=== PATIENT | female | born 2000 | race Caucasian/White ===

== ENCOUNTER → 2024-02-01 09:51 | Outpatient (REF) | payer OTHER, SELFPAY | LOC: HWRAD 09:51 | PROVIDERS: ATTENDING PHYSICIAN Nurse Practitioner Family | DX: Z34.90 Encounter for supervision of normal pregnancy, unspecified, unspecified trimester (principal) | CPT/HCPCS: 76801 ==

== ENCOUNTER 2024-02-21 09:48 | Emergency (ER) | payer OTHER, SELFPAY ==
[2024-02-21 09:51] VITALS: BP 103/70
[2024-02-21 10:58] LABS: % Eosinophils 0.5 % (0-6); % Immature Granulocytes 0.2 % (0-0.5); % Lymphocytes 17.5 % (20.5-51.1); % Monocytes 6.3 % (1.7-9.3); % Neutrophils 75.5 % (42.2-75.2); Absolute Lymphocytes 0.8 10^3/uL (1.2-3.4); Absolute Monocytes 0.3 10^3/uL (0.1-0.6); Absolute Neutrophils 3.2 10^3/uL (1.4-6.5); Hematocrit 33.3 % (37.0-47.0); Hemoglobin 11.3 g/dL (12.0-16.0); Mean Corp Hgb Conc. 33.9 g/dL (33.0-37.0); Mean Corpuscular Volume 88.3 fL (81.0-99.0); Mean Platelet Volume 9.8 fL (7.4-10.4); Nucleated Red Blood Cells % 0 %; Platelet Count 171 10^3/uL (130-400); Red Blood Cell Count 3.77 10^6/uL (4.20-5.40); Red Cell Dist. Width 12.3 % (11.5-14.5); White Blood Cell Count 4.3 10^3/uL (4.8-10.8)
[2024-02-21 11:04] LABS: ALT (SGPT) 16 U/L (0-35); AST (SGOT) 21 U/L (14-36); Albumin 4.2 g/dl (3.5-5.0); Alkaline Phosphatase 39 U/L (38-126); Blood Urea Nitrogen 10 mg/dl (7-17); Calcium 9.4 mg/dl (8.4-10.2); Carbon Dioxide 21 mmol/L (22-30); Chloride 104 mmol/L (98-107); Glucose 102 mg/dl (70-99); Potassium 4.3 mmol/L (3.5-5.1); Sodium 137 mmol/L (135-145); Total Bilirubin 0.8 mg/dl (0.2-1.3); Total Protein 6.9 g/dl (6.3-8.2); eGFR > 60.00
[2024-02-21] MEDS: D5/0.9% SODIUM CHLORIDE 1000 IV (11:29)
[2024-02-21] MEDS: ZOFRAN 4 MG IV (11:29)
[2024-02-21 11:39] LABS: Urine Albumin Trace (Neg - Trace); Urine Bilirubin 1+ (Negative); Urine Character Very Cloudy (Clear); Urine Color Yellow; Urine Glucose Negative (Negative); Urine Ketone 3+ (Negative); Urine Leukocyte 1+ (Negative); Urine Nitrite Negative (Negative); Urine Occult Blood Negative (Negative); Urine Specific Gravity 1.025 (<1.030); Urine Urobilinogen 1+ (Neg - 1+)
--- NOTE | 2024-02-21 12:14 | ED.GENMED ---
History of Present Illness
General
Chief Complaint: Problems
Source: patient
Exam Limitations: none
Time Seen by Provider: 02/21/24 10:55
Nursing documentation reviewed up to this point in time: agreed with
History of Present Illness
History of Present Illness:
23-year-old female currently 13 weeks confirmed with ultrasound with her group insurance special agent presenting to the emergency department today with concerns of persisting nausea and vomiting over the past few days. Has been taking doxylamine at
night but has not noticed any improvement over the last few days. Denies any abdominal pain cramping or vaginal bleeding. Denies any medical conditions or other daily medications.
Past History
Past History
ED Past Medical History: None
ED Past Surgical History: None
Review of Systems
Review of Systems
Allergies reviewed?: Yes
All Other Systems: ROS reviewed and negative except as documented in HPI and ROS
Phy Exam
Physical Exam
Physical Exam:
GENERAL: Alert , in no apparent distress
EYE: pupils equal and reactive
NECK: Supple, no significant adenopathy.
ENT: o/p clr, mmm.
CARDIAC: Regular rate and rhythm .
LUNGS: Clear breath sounds bilaterally, no acute respiratory distress, no wheezes/rales/rhonchi
ABDOMEN: Soft, without focal tenderness, no r/g, no cvat
NEUROLOGICAL: Alert and oriented, no focal neuro deficits
SKIN: Warm and dry, skin intact.
MUSCULOSKELETAL: No edema, well perfused.
PSYCH: Normal and appropriate interaction.
Course
Orders/Labs/Results
Orders:
Orders
02/21/24 10:30
Complete Blood Count/With Diff Urgent
Comprehensive Metabolic Panel Urgent
HCG, Beta Quantitative [Beta HCG Quantitative] Urgent
Is this a screen?: No
02/21/24 10:57
Ondansetron Injectable [Zofran] 4 mg IV NOW STA
02/21/24 10:58
Dextrose 5%/0.9%Sodchl 1000 ml [D5/0.9% Sodium Chloride] 1,000 ml IV 1,000 mls/hr
02/21/24 11:16
Ondansetron Injectable [Zofran] 4 mg .ROUTE .[facility]
02/21/24 11:30
Urinalysis Reflex To Culture Urgent
Date Specimen was Collected: 02/21/24
Time Specimen was Collected: :
Urine Microscopic Reflex Cult Urgent
Urine Culture Urgent
MARIA R Source: U
Specimen Description:
Date Specimen was Collected: 02/21/24
Time Specimen was Collected: :
Abnormal Lab Results
02/21/24 02/21/24
:30 11:30
WBC 4.3 L 10^3/uL
(4.8-10.8)
RBC 3.77 L 10^6/uL
(4.20-5.40)
Hgb 11.3 L g/dL
(12.0-16.0)
Hct 33.3 L %
(37.0-47.0)
Absolute Lymphs (auto) 0.8 L 10^3/uL
(1.2-3.4)
Neutrophils % 75.5 H %
(42.2-75.2)
Lymphocytes % 17.5 L %
(20.5-51.1)
Carbon Dioxide 21 L mmol/L
(22-30)
Glucose 102 H mg/dl
(70-99)
Urine Ketones 3+ A
(Negative)
Urine Bilirubin 1+ A
(Negative)
Leukocyte Esterase Rfl 1+ A
(Negative)
Urine WBC (Reflex) 11-15 A /HPF
(0-5)
Urine Bacteria (Reflex) Many A
(Negative)
02/21/24 10:30
02/21/24 10:30
Vital Signs
Initial and Last Documented VS:
Initial Vital Signs
Temp Pulse Resp BP Pulse Ox
98.9 F 99 18 103/70 98
02/21/24 09:51 02/21/24 09:51 02/21/24 09:51 02/21/24 09:51 02/21/24 09:51
Last Documented Vital Signs
Temp Pulse Resp BP Pulse Ox
98.9 F 99 18 103/70 98
02/21/24 09:51 02/21/24 09:51 02/21/24 09:51 02/21/24 09:51 02/21/24 09:51
Information
Weeks gestation: Weeks:
Location: Location:
MDM/Problems Addressed
MDM/Problems Addressed:
23-year-old female presenting to the emergency department today with concerns of nausea and vomiting persisting over the past few days in the setting of 13 weeks . Patient did have confirmatory ultrasound recently through her group insurance special agent.
This is her first . Vital signs normal on arrival labs obtained that do not show any emergent changes. Patient with normal heart tones on bedside examination. Otherwise feeling much better after Zofran. Stable for outpatient
management return precautions given.
*Critical Care Note
Total Time (30-74mins, 75-104mins- exclusive of procedures): Not Applicable
ED Attending Note
-
Portions of this chart may have been created with voice recognition software.� Occasional wrong word or��sound alike� substitutions may have occurred due to the inherent limitations of voice recognition software.
Discharge Plan
Departure
Patient Disposition: Home (Routine Discharge)
Date of Disposition: 02/21/24
Time of Disposition: 13:48
Patient with high blood pressure during this ER visit?: No
Condition: Good
Covid-19: Not Applicable
Discharge Problem:
Vomiting of
Instructions: Morning Sickness (DC)
Prescriptions:
New
ondansetron 4 mg tablet,disintegrating
4 mg PO Q6H PRN (Reason: nausea and vomiting) Qty: 7 0RF
No Action
methylprednisolone [Medrol (R[facility])] 4 mg tablets,dose pack
4 mg PO DAILY Qty: 21 0RF
ondansetron 4 mg tablet,disintegrating
4 mg PO Q8H PRN (Reason: nausea and vomiting) 5 Days Qty: 14 0RF
Referrals:
Daron Thrasher MD [Family Provider] -
Activity Restrictions/Additional Instructions:
You came to the emergency department today with concerns of nausea and vomiting in . You can take Zofran 1 tab every 6 hours to help with nausea in the future. Return to the emergency department for any worsening, new or concerning
symptoms.
Interventions
Interventions:
*Risk Screen - Suicide Last Done: 02/21/24 09:54
*General Assessment Last Done: 02/21/24 12:44
*Neglect/Abuse Screening Last Done: 02/21/24 09:54
ED- Fall Risk Assessment Last Done: 02/21/24 12:44
*ED COVID-19 Vaccine History Last Done: 02/21/24 12:44
ED-Female Genitourinary Assessment Last Done: 02/21/24 12:44
Discharge Date and Time
Print Language: GEORGIAN
[2024-02-21 12:16] LABS: Urine Mucus Many; Urine Squamous Cell >30 /LPF (Few)
[2024-02-21 12:17] LABS: Urine Amorphous Seen
[2024-02-21 12:18] LABS: Urine Bacteria Many (Negative); Urine Red Blood Cell 0-2 /HPF (0-2)
[2024-02-21 14:21] VITALS: BP 105/66
== END 2024-02-21 14:23 | disposition home or self-care (01) ==
LOC: EMR 09:48
PROVIDERS: Physician Assistant; EMERGENCY PHYSICIAN Emergency Medicine; FAMILY PHYSICIAN Obstetrics & Gynecology
DX: O21.9 Vomiting of pregnancy, unspecified (principal); Z3A.13 13 weeks gestation of pregnancy
CPT/HCPCS: 96374; 96361; 99284; 80053; 81003; 81015; 84702; 85025; 87086

== ENCOUNTER → 2024-04-16 06:57 | Outpatient (REF) | payer OTHER, SELFPAY | LOC: PNTC 06:57 | PROVIDERS: ATTENDING PHYSICIAN Student in an Organized Health Care Education/Training Program | DX: Z34.82 Encounter for supervision of other normal pregnancy, second trimester (principal); O28.3 Abnormal ultrasonic finding on antenatal screening of mother | CPT/HCPCS: 76811 ==

== ENCOUNTER 2024-04-20 12:18 | Emergency (ER) | payer OTHER, SELFPAY ==
[2024-04-20 12:21] VITALS: BP 101/68
[2024-04-20 12:38] LABS: % Basophils 0.1 % (0-2); % Eosinophils 0.3 % (0-6); % Immature Granulocytes 0.1 % (0-0.5); % Lymphocytes 7.1 % (20.5-51.1); % Monocytes 5.6 % (1.7-9.3); % Neutrophils 86.8 % (42.2-75.2); Absolute Lymphocytes 0.5 10^3/uL (1.2-3.4); Absolute Monocytes 0.4 10^3/uL (0.1-0.6); Absolute Neutrophils 6.3 10^3/uL (1.4-6.5); Hematocrit 33.6 % (37.0-47.0); Hemoglobin 11.3 g/dL (12.0-16.0); Mean Corp Hgb Conc. 33.6 g/dL (33.0-37.0); Mean Corpuscular Hgb 31.9 pg (27.0-31.0); Mean Corpuscular Volume 94.9 fL (81.0-99.0); Mean Platelet Volume 9.6 fL (7.4-10.4); Nucleated Red Blood Cells % 0 %; Platelet Count 179 10^3/uL (130-400); Red Blood Cell Count 3.54 10^6/uL (4.20-5.40); Red Cell Dist. Width 13.2 % (11.5-14.5); White Blood Cell Count 7.3 10^3/uL (4.8-10.8)
[2024-04-20 12:50] LABS: ALT (SGPT) 20 U/L (0-35); AST (SGOT) 24 U/L (14-36); Albumin 3.5 g/dl (3.5-5.0); Alkaline Phosphatase 60 U/L (38-126); Blood Urea Nitrogen 8 mg/dl (7-17); Calcium 8.7 mg/dl (8.4-10.2); Carbon Dioxide 24 mmol/L (22-30); Chloride 103 mmol/L (98-107); Glucose 86 mg/dl (70-99); Lipase 61 U/L (23-300); Sodium 134 mmol/L (135-145); Total Bilirubin 0.4 mg/dl (0.2-1.3); Total Protein 6.3 g/dl (6.3-8.2); eGFR > 60.00
--- NOTE | 2024-04-20 13:49 | ED.GENMED ---
History of Present Illness
General
Chief Complaint: Abdominal Symptoms
Source: patient
Exam Limitations: none
Time Seen by Provider: 04/20/24 13:41
Nursing documentation reviewed up to this point in time: agreed with
History of Present Illness
History of Present Illness:
23 yo female , 21 weeks here at the suggestion of her OB Dr. Alejandro for nausea, vomiting, non bloody diarrhea over past 4 days. Is slowing down past 24 hours. No recent travel, no known sick contacts, no recent antibiotics.
Denies fever/chills. Gets sharp abdominal pains at times. Last diarrhea 5 a.m. Last emesis 5 a.m. Feels nauseous now.
Past History
Past History
ED Past Medical History: None
ED Past Surgical History: None
Social History
Tobacco: Non-smoker
Alcohol: None
Personal:
Living: with family
Review of Systems
Review of Systems
Allergies reviewed?: Yes
All Other Systems: ROS reviewed and negative except as documented in HPI and ROS
Constitutional: Denies fever or chills
Respiratory: Denies trouble breathing
Cardiac: Denies chest pain
ABD/GI: Reports abdominal pain (intermittent), nausea, vomiting and diarrhea; Denies bloody stools or black stools
: Denies dysuria, frequency or difficulty voiding
Musculoskeletal: Reports no symptoms
Skin: Reports no symptoms
Neurological: Reports no symptoms
Phy Exam
Physical Exam
Physical Exam:
GENERAL: No acute distress. A&Ox3.
CONSTITUTIONAL: Afebrile.
EYES: clear, conjunctivae normal
ENMT: moist mucus membranes, Pharynx nl
RESPIRATORY: Regular respirations, nonlabored, lungs clear.
CARDIOVASCULAR: Regular rate and rhythm, no murmurs, no rubs.
GI: Soft, nontender, normal BS, mildly rotund consistent with 21-week
MUSCULOSKELETAL: Moves with ease. Well perfused.
SKIN: Warm, dry, pink
PSYCH: Normal mood and affect. Well kept, interactive and appropriate
NEUROLOGIC: Awake, alert and oriented. No focal neurological deficits
Course
Orders/Labs/Results
Orders:
Orders
04/20/24 12:29
CMP [Comprehensive Metabolic Panel] Urgent
Complete Blood Count/With Diff Urgent
Lipase Urgent
04/20/24 13:48
Ondansetron Injectable [Zofran] 4 mg IV NOW STA
04/20/24 13:49
0.9% Sodium Chloride 1000 ml [Nss] 1,000 ml IV BOLUS
04/20/24 14:00
Heart Tones ONCE
Abnormal Lab Results
04/20/24
12:29
RBC 3.54 L 10^6/uL
(4.20-5.40)
Hgb 11.3 L g/dL
(12.0-16.0)
Hct 33.6 L %
(37.0-47.0)
MCH 31.9 H pg
(27.0-31.0)
Absolute Lymphs (auto) 0.5 L 10^3/uL
(1.2-3.4)
Neutrophils % 86.8 H %
(42.2-75.2)
Lymphocytes % 7.1 L %
(20.5-51.1)
Sodium 134 L mmol/L
(135-145)
04/20/24 12:29
04/20/24 12:29
Vital Signs
Initial and Last Documented VS:
Initial Vital Signs
Temp Pulse Resp BP Pulse Ox
98.1 F 95 16 101/68 100
04/20/24 12:21 04/20/24 12:21 04/20/24 12:21 04/20/24 12:21 04/20/24 12:21
Last Documented Vital Signs
Temp Pulse Resp BP Pulse Ox
98.1 F 95 16 102/62 100
04/20/24 12:21 04/20/24 12:21 04/20/24 12:21 04/20/24 15:00 04/20/24 15:15
MDM/Problems Addressed
Differential Diagnosis Includes:
Dehydration, viral gastroenteritis
MDM/Problems Addressed:
23 yo female , 21 weeks here at the suggestion of her OB Dr. Alejandro for nausea, vomiting, non bloody diarrhea over past 4 days. Is slowing down past 24 hours. No recent travel, no known sick contacts, no recent antibiotics.
Denies fever/chills. Gets sharp abdominal pains at times. Last diarrhea 5 a.m. Last emesis 5 a.m. Feels nauseous now.
Has felt consistent movement
CBC, CMP with no clinically significant abnormality
3:10 p.m.
Pt feeling better. Tolerating bekah miracle and crackers
Rx for Zofran sent to her pharmacy
FHT:[id number]
There has been no vomiting or diarrhea since 5 a.m. and pt states it is improving from 2 days ago.
Stable for discharge
*Critical Care Note
Total Time (30-74mins, 75-104mins- exclusive of procedures): Not Applicable
ED Attending Note
-
Portions of this chart may have been created with voice recognition software.� Occasional wrong word or��sound alike� substitutions may have occurred due to the inherent limitations of voice recognition software.
Discharge Plan
Departure
Patient Disposition: Home (Routine Discharge)
Date of Disposition: 04/20/24
Time of Disposition: 15:10
Patient with high blood pressure during this ER visit?: No
Condition: Good
Discharge Problem:
Gastroenteritis
Instructions: Viral gastroenteritis in adults
Prescriptions:
New
ondansetron 4 mg tablet,disintegrating
4 mg PO Q8H PRN (Reason: nausea and vomiting) 3 Days Qty: 10 0RF
No Action
methylprednisolone [Medrol (R[facility])] 4 mg tablets,dose pack
4 mg PO DAILY Qty: 21 0RF
ondansetron 4 mg tablet,disintegrating
4 mg PO Q8H PRN (Reason: nausea and vomiting) 5 Days Qty: 14 0RF
ondansetron 4 mg tablet,disintegrating
4 mg PO Q6H PRN (Reason: nausea and vomiting) Qty: 7 0RF
Referrals:
Your, OB [Other] - As needed
Shirin Gagnon, DO [Family Provider] -
Activity Restrictions/Additional Instructions:
As we discussed, your baby's heart rate is normal
I sent a prescription to your pharmacy for Zofran to use as needed for nausea.
Since your diarrhea and vomiting are improving, nothing more to be done at this point.
Interventions
Interventions:
*Risk Screen - Suicide Last Done: 04/20/24 15:59
*General Assessment Last Done: 04/20/24 15:59
*Neglect/Abuse Screening Last Done: 04/20/24 15:59
ED- Fall Risk Assessment Last Done: 04/20/24 15:59
*ED COVID-19 Vaccine History Last Done: 04/20/24 15:59
*Nursing Disposition Last Done: 04/20/24 15:59
PD-Repuxj-Myhxulhsum Assessment Last Done: 04/20/24 14:00
Discharge Date and Time
Discharge Date/Time: 04/20/24 16:01
Print Language: BURMESE
[2024-04-20] MEDS: NSS 1000 IV (14:16)
[2024-04-20] MEDS: ZOFRAN 4 MG IV (14:17)
[2024-04-20 15:00] VITALS: BP 102/62
--- NOTE | 2024-04-20 15:12 | EDRN ---
heart tones strong and HR 140
== END 2024-04-20 16:01 | disposition home or self-care (01) ==
LOC: EMR 12:18
PROVIDERS: Emergency Medicine; EMERGENCY PHYSICIAN Emergency Medicine; FAMILY PHYSICIAN Family Medicine
DX: O99.612 Diseases of the digestive system complicating pregnancy, second trimester (principal); K52.9 Noninfective gastroenteritis and colitis, unspecified; Z3A.21 21 weeks gestation of pregnancy
CPT/HCPCS: 96374; 96361; 99284; 80053; 83690; 85025

== ENCOUNTER → 2024-05-14 16:35 | Outpatient (REF) | payer OTHER, SELFPAY | LOC: PNTC 16:35 | PROVIDERS: ATTENDING PHYSICIAN Student in an Organized Health Care Education/Training Program | DX: O35.8XX0 Maternal care for other (suspected) fetal abnormality and damage, not applicable or unspecified (principal) | CPT/HCPCS: 76816 ==

== ENCOUNTER → 2024-06-11 16:33 | Outpatient (REF) | payer OTHER, SELFPAY | LOC: PNTC 16:33 | PROVIDERS: ATTENDING PHYSICIAN Student in an Organized Health Care Education/Training Program | DX: O28.3 Abnormal ultrasonic finding on antenatal screening of mother (principal) | CPT/HCPCS: 76816 ==

== ENCOUNTER 2024-06-21 08:06 | Emergency (ER) | payer OTHER, SELFPAY ==
[2024-06-21] VITALS (7 sets, daily range): BP systolic 97–125; BP diastolic 57–85
--- NOTE | 2024-06-21 09:23 | ED.GENMED ---
History of Present Illness
General
Chief Complaint: Fainting Sensation
Source: patient
Exam Limitations: none
Time Seen by Provider: 06/21/24 09:06
History of Present Illness
History of Present Illness:
23-year-old female currently 30 weeks presents complaining of intermittent lightheadedness this week. She was standing in the shower and started to see stars and felt lightheaded she had to sit her self down. She also notes intermittent
stabbing chest to the right side. This has been intermittent for several days not pleuritic and random in nature. She feels that his lowest the baby moving around. Currently she denies any chest pain. She denies any leg swelling or calf pain.
No hemoptysis. She denies abdominal pain or bleeding. She is followed with [facility]. No recent travel or surgery
Past History
Past History
ED Past Medical History: None
ED Past Surgical History: None
Social History
Tobacco: Non-smoker
Alcohol: None
Personal:
Living: with family
Phy Exam
Physical Exam
Physical Exam:
General: Well-appearing female no acute respiratory distress
HEENT: Normocephalic atraumatic
Heart: Regular rate and rhythm
Lungs: Clear no wheeze
Extremities: No cyanosis or edema
Course
Orders/Labs/Results
Orders:
Orders
06/21/24 08:10
Electrocardiogram (*1) Urgent
Reason for Study: Shortness of Breath
06/21/24 08:11
EKG- Treatment ONCE
06/21/24 09:40
Complete Blood Count/With Diff Urgent
Comprehensive Metabolic Panel Urgent
Troponin I Urgent
06/21/24 11:09
0.9% Sodium Chloride 1000 ml [Nss] 1,000 ml IV BOLUS
Abnormal Lab Results
06/21/24
09:40
RBC 3.37 L 10^6/uL
(4.20-5.40)
Hgb 10.2 L g/dL
(12.0-16.0)
Hct 31.4 L %
(37.0-47.0)
MCHC 32.5 L g/dL
(33.0-37.0)
Absolute Monos (auto) 0.7 H 10^3/uL
(0.1-0.6)
Lymphocytes % 18.0 L %
(20.5-51.1)
Sodium 133 L mmol/L
(135-145)
Creatinine 0.5 L mg/dL
(0.6-1.0)
Total Protein 6.2 L g/dl
(6.3-8.2)
06/21/24 09:40
06/21/24 09:40
Vital Signs
Initial and Last Documented VS:
Initial Vital Signs
Temp Pulse Resp BP Pulse Ox
97.7 F 109 18 125/85 100
06/21/24 08:08 06/21/24 08:08 06/21/24 08:08 06/21/24 08:08 06/21/24 08:08
Last Documented Vital Signs
Temp Pulse Resp BP Pulse Ox
97.7 F 74 16 97/57 98
06/21/24 08:08 06/21/24 12:00 06/21/24 12:20 06/21/24 12:00 06/21/24 12:20
MDM/Problems Addressed
Differential Diagnosis Includes:
Patient with near syncopal episodes today and throughout the week. No chest pain currently normal heart rate currently. Suspect orthostatic hypotension versus dehydration we will continue to monitor for arrhythmias. Chest discomfort atypical not
consistent with PE and without hypoxia or tachycardia have low suspicion. Fluids ordered basic labs pending
*Critical Care Note
Total Time (30-74mins, 75-104mins- exclusive of procedures): Not Applicable
Update Note
Update Note:
Labs reviewed without significant finding. Patient feeling better after IV fluids. I suspect orthostasis as source of near syncope. There is no arrhythmias noted on monitor. Abdomen exam upon reassessment is benign.
ED Attending Note
-
Portions of this chart may have been created with voice recognition software.� Occasional wrong word or��sound alike� substitutions may have occurred due to the inherent limitations of voice recognition software.
Discharge Plan
Departure
Patient Disposition: Home (Routine Discharge)
Date of Disposition: 06/21/24
Time of Disposition: 12:58
Patient with high blood pressure during this ER visit?: No
Discharge Problem:
Near syncope
Instructions: Near Fainting (DC)
Prescriptions:
No Action
methylprednisolone [Medrol (Ridge)] 4 mg tablets,dose pack
4 mg PO DAILY Qty: 21 0RF
ondansetron 4 mg tablet,disintegrating
4 mg PO Q8H PRN (Reason: nausea and vomiting) 5 Days Qty: 14 0RF
ondansetron 4 mg tablet,disintegrating
4 mg PO Q6H PRN (Reason: nausea and vomiting) Qty: 7 0RF
ondansetron 4 mg tablet,disintegrating
4 mg PO Q8H PRN (Reason: nausea and vomiting) 3 Days Qty: 10 0RF
Referrals:
Adalid Anderson DO [Family Provider] -
Activity Restrictions/Additional Instructions:
Stay hydrated. Return here for worsening symptoms otherwise follow-up with your [facility]
Interventions
Interventions:
*Risk Screen - Suicide Last Done: 06/21/24 08:08
*General Assessment Last Done: 06/21/24 08:08
*Neglect/Abuse Screening Last Done: 06/21/24 08:08
*ED COVID-19 Vaccine History Last Done: 06/21/24 08:38
ED- Neurological Assessment Last Done: 06/21/24 08:38
ED- Cardiac Assessment Last Done: 06/21/24 08:38
Discharge Date and Time
Print Language: FAROESE
[2024-06-21 09:53] LABS: % Basophils 0.1 % (0-2); % Eosinophils 0.4 % (0-6); % Immature Granulocytes 0.3 % (0-0.5); % Monocytes 8.2 % (1.7-9.3); Absolute Lymphocytes 1.6 10^3/uL (1.2-3.4); Absolute Monocytes 0.7 10^3/uL (0.1-0.6); Absolute Neutrophils 6.5 10^3/uL (1.4-6.5); Hematocrit 31.4 % (37.0-47.0); Hemoglobin 10.2 g/dL (12.0-16.0); Mean Corp Hgb Conc. 32.5 g/dL (33.0-37.0); Mean Corpuscular Hgb 30.3 pg (27.0-31.0); Mean Corpuscular Volume 93.2 fL (81.0-99.0); Mean Platelet Volume 10.2 fL (7.4-10.4); Nucleated Red Blood Cells % 0 %; Platelet Count 180 10^3/uL (130-400); Red Blood Cell Count 3.37 10^6/uL (4.20-5.40); White Blood Cell Count 8.9 10^3/uL (4.8-10.8)
[2024-06-21 10:05] LABS: ALT (SGPT) 15 U/L (0-35); AST (SGOT) 18 U/L (14-36); Albumin 3.6 g/dl (3.5-5.0); Alkaline Phosphatase 98 U/L (38-126); Blood Urea Nitrogen 10 mg/dl (7-17); Calcium 8.9 mg/dl (8.4-10.2); Carbon Dioxide 23 mmol/L (22-30); Chloride 103 mmol/L (98-107); Glucose 86 mg/dl (70-99); Potassium 4.3 mmol/L (3.5-5.1); Sodium 133 mmol/L (135-145); Total Bilirubin 0.6 mg/dl (0.2-1.3); Total Protein 6.2 g/dl (6.3-8.2); eGFR > 60.00
[2024-06-21 10:15] LABS: Troponin I < 0.012 ng/ml
[2024-06-21] MEDS: NSS 1000 IV (11:32)
[2024-06-21 13:14] LABS: Urine Albumin Negative (Neg - Trace); Urine Bilirubin Negative (Negative); Urine Character Clear (Clear); Urine Color Yellow; Urine Glucose Negative (Negative); Urine Ketone Negative (Negative); Urine Leukocyte 2+ (Negative); Urine Nitrite Negative (Negative); Urine Occult Blood Negative (Negative); Urine Urobilinogen Negative (Neg - 1+)
[2024-06-21 13:28] LABS: Urine Red Blood Cell 0-2 /HPF (0-2); Urine Squamous Cell >30 /LPF (Few)
[2024-06-21 13:29] LABS: Urine Bacteria Many (Negative)
== END 2024-06-21 13:19 | disposition home or self-care (01) ==
LOC: EMR 08:06
PROVIDERS: Physician Assistant; EMERGENCY PHYSICIAN Emergency Medicine; FAMILY PHYSICIAN Internal Medicine
DX: O99.891 Other specified diseases and conditions complicating pregnancy (principal); R55 Syncope and collapse; Z3A.30 30 weeks gestation of pregnancy
CPT/HCPCS: 99283; 96360; 80053; 81003; 81015; 84484; 85025; 87086; 93005

== ENCOUNTER 2024-06-28 17:07 | Emergency (ER) | payer OTHER, SELFPAY ==
[2024-06-28 17:10] VITALS: BP 107/69
[2024-06-28 17:31] LABS: % Basophils 0.1 % (0-2); % Eosinophils 0.5 % (0-6); % Immature Granulocytes 0.2 % (0-0.5); % Lymphocytes 19.3 % (20.5-51.1); % Monocytes 8.5 % (1.7-9.3); % Neutrophils 71.4 % (42.2-75.2); Absolute Lymphocytes 1.7 10^3/uL (1.2-3.4); Absolute Monocytes 0.7 10^3/uL (0.1-0.6); Absolute Neutrophils 6.2 10^3/uL (1.4-6.5); Hematocrit 29.4 % (37.0-47.0); Hemoglobin 9.8 g/dL (12.0-16.0); Mean Corp Hgb Conc. 33.3 g/dL (33.0-37.0); Mean Corpuscular Hgb 29.8 pg (27.0-31.0); Mean Corpuscular Volume 89.4 fL (81.0-99.0); Mean Platelet Volume 9.8 fL (7.4-10.4); Nucleated Red Blood Cells % 0 %; Platelet Count 196 10^3/uL (130-400); Red Blood Cell Count 3.29 10^6/uL (4.20-5.40); Red Cell Dist. Width 12.2 % (11.5-14.5); White Blood Cell Count 8.7 10^3/uL (4.8-10.8)
[2024-06-28 17:53] LABS: ALT (SGPT) 15 U/L (0-35); AST (SGOT) 18 U/L (14-36); Albumin 3.6 g/dl (3.5-5.0); Alkaline Phosphatase 104 U/L (38-126); Blood Urea Nitrogen 11 mg/dl (7-17); Calcium 8.7 mg/dl (8.4-10.2); Carbon Dioxide 24 mmol/L (22-30); Chloride 101 mmol/L (98-107); Glucose 85 mg/dl (70-99); Sodium 131 mmol/L (135-145); Total Bilirubin 0.6 mg/dl (0.2-1.3); Total Protein 6.3 g/dl (6.3-8.2); eGFR > 60.00
[2024-06-28 17:54] LABS: NT-proBNP < 20.0 pg/ml; Troponin I < 0.012 ng/ml
--- NOTE | 2024-06-28 19:38 | ED.GENMED ---
History of Present Illness
<Мария Yeh PA-C - Last Filed: 06/29/24 00:19>
General
Chief Complaint: Problems
Source: patient
Exam Limitations: none
Time Seen by Provider: 06/28/24 18:33
Nursing documentation reviewed up to this point in time: agreed with
History of Present Illness
History of Present Illness:
Patient is a G1, P0 at approximately 32 weeks gestation presenting to the emergency department due to multiple near syncopal events over the past week. Patient reports intermittently throughout the day she will have episodes of 'seeing stars
'becoming clammy, lightheaded. The episodes have occurred both with sitting and standing although have improved on their own without true syncopal events. She does report mild shortness of breath with exertion although was unsure if this is
related. Patient declines any pleuritic chest pain. Patient denies any pain or swelling in lower extremities. Patient denies any recent travel. The symptoms are not associated with any severe headache, vomiting, exertional activities.
Patient was seen in the ED for similar complaint about a week ago for symptoms were suspected to be secondary to possible dehydration.
Given persistence of symptoms over the past week�patient did contact her TREASURY MANAGER who recommended she be seen in department again to rule out a blood clot. Patient follows with [facility].
Past History
<Мария Yeh PA-C - Last Filed: 06/29/24 00:19>
Past History
ED Past Medical History: None
ED Past Surgical History: None
Social History
Tobacco: Non-smoker
Alcohol: None
Personal:
Living: with family
Review of Systems
<Мария Yeh PA-C - Last Filed: 06/29/24 00:19>
Review of Systems
Allergies reviewed?: Yes
All Other Systems: ROS reviewed and negative except as documented in HPI and ROS
Phy Exam
<Мария Yeh PA-C - Last Filed: 06/29/24 00:19>
Physical Exam
Physical Exam:
Vitals: Patient's vital signs are stable. Afebrile
General: Patient is well appearing, no acute distress.
Skin: Warm and dry, no rashes or lesions
Head: Normocephalic, atraumatic
Eyes: Sclera nonicteric. Pupils equal round to light bilaterally. EOMs intact. No nystagmus.
Throat: Protecting airway
Neck: Normal ROM, no cervical spine tenderness, no meningismus
Cardiac: Regular rate and rhythm, no murmurs.
Pulm: Normal respiratory effort, no wheezes, rales, rhonchi heard on exam. O2 saturation 98 on room air
Abdomen: Gravid abdomen. No abdominal tenderness.
Extremities: No evidence of cyanosis or edema. Negative Homans' sign bilaterally
Neuro: AAOx3. Grossly intact.
Psychiatric: Normal affect.
Course
<Мария Yeh PA-C - Last Filed: 06/29/24 00:19>
Orders/Labs/Results
Orders:
Orders
06/28/24 17:17
Electrocardiogram (*1) Urgent
Reason for Study: Shortness of Breath
EKG- Treatment ONCE
06/28/24 17:24
BNP [NT-proBNP] Urgent
CMP [Comprehensive Metabolic Panel] Urgent
Complete Blood Count/With Diff Urgent
Troponin I Urgent
06/28/24 19:09
Orthostatic VS- Treatment ONCE
0.9% Sodium Chloride 1000 ml [Nss] 1,000 ml IV BOLUS
US Legs, Bilateral [US Periph Venous LOWER Ext Russell] Urgent
Comment:
Reason For Exam: SOB in
06/28/24 19:15
Heart Tones ONCE
06/28/24 20:02
D-Dimer Urgent
Abnormal Lab Results
06/28/24 06/28/24
17:24 20:02
RBC 3.29 L 10^6/uL
(4.20-5.40)
Hgb 9.8 L g/dL
(12.0-16.0)
Hct 29.4 L %
(37.0-47.0)
Absolute Monos (auto) 0.7 H 10^3/uL
(0.1-0.6)
Lymphocytes % 19.3 L %
(20.5-51.1)
D-Dimer 1.27 H ug/mlFEU
(0.00-0.50)
Sodium 131 L mmol/L
(135-145)
Creatinine 0.5 L mg/dL
(0.6-1.0)
06/28/24 17:24
06/28/24 17:24
Vital Signs
Initial and Last Documented VS:
Initial Vital Signs
Temp Pulse Resp BP Pulse Ox
36.6 C 92 18 107/69 98
06/28/24 17:10 06/28/24 17:10 06/28/24 17:10 06/28/24 17:10 06/28/24 17:10
Last Documented Vital Signs
Temp Pulse Resp BP Pulse Ox
36.6 C 92 18 110/67 99
06/28/24 17:10 06/28/24 17:10 06/28/24 17:10 06/28/24 22:00 06/28/24 21:07
Information
Weeks gestation: Weeks: (32)
Location: Location: (Intrauterine)
<Adalid Chacko MD - Last Filed: 06/29/24 02:55>
Orders/Labs/Results
Orders:
Orders
06/28/24 17:17
Electrocardiogram (*1) Urgent
Reason for Study: Shortness of Breath
EKG- Treatment ONCE
06/28/24 17:24
BNP [NT-proBNP] Urgent
CMP [Comprehensive Metabolic Panel] Urgent
Complete Blood Count/With Diff Urgent
Troponin I Urgent
06/28/24 19:09
Orthostatic VS- Treatment ONCE
0.9% Sodium Chloride 1000 ml [Nss] 1,000 ml IV BOLUS
US Legs, Bilateral [US Periph Venous LOWER Ext Russell] Urgent
Comment:
Reason For Exam: SOB in
06/28/24 19:15
Heart Tones ONCE
06/28/24 20:02
D-Dimer Urgent
Abnormal Lab Results
06/28/24 06/28/24
17:24 20:02
RBC 3.29 L 10^6/uL
(4.20-5.40)
Hgb 9.8 L g/dL
(12.0-16.0)
Hct 29.4 L %
(37.0-47.0)
Absolute Monos (auto) 0.7 H 10^3/uL
(0.1-0.6)
Lymphocytes % 19.3 L %
(20.5-51.1)
D-Dimer 1.27 H ug/mlFEU
(0.00-0.50)
Sodium 131 L mmol/L
(135-145)
Creatinine 0.5 L mg/dL
(0.6-1.0)
06/28/24 17:24
06/28/24 17:24
Vital Signs
Initial and Last Documented VS:
Initial Vital Signs
Temp Pulse Resp BP Pulse Ox
36.6 C 92 18 107/69 98
06/28/24 17:10 06/28/24 17:10 06/28/24 17:10 06/28/24 17:10 06/28/24 17:10
Last Documented Vital Signs
Temp Pulse Resp BP Pulse Ox
36.6 C 92 18 110/67 99
06/28/24 17:10 06/28/24 17:10 06/28/24 17:10 06/28/24 22:00 06/28/24 21:07
<Мария Yeh PA-C - Last Filed: 06/29/24 00:19>
MDM/Problems Addressed
Differential Diagnosis Includes:
Not limited to acute dehydration, viral illness, near vasovagal syncope, orthostatic hypotension, pulmonary embolism, etc.
MDM/Problems Addressed:
23-year-old female approximate 32 weeks presenting after multiple near syncopal events over the past week and mild shortness of breath. TREASURY MANAGER referred patient given concern for blood clot. Patient denies any pleuritic chest pain. No lower
leg swelling or pain. Vital signs and physical exam as above. Basic screening labs were sent in triage which show a anemia with hemoglobin of 9.8�likely secondary to . Mild hyponatremia otherwise no clinically significant abnormalities.
Troponin undetectable. EKG shows normal sinus rhythm without ischemic changes. Will obtain bilateral lower extremity ultrasounds and check D-dimer. Will give IV fluids.
Update: heart tones obtained at 145 bpm. Bilateral lower extremity ultrasound without evidence of DVT. Unfortunately�D-dimer was found to be elevated at 1.27. Ultimately very low suspicion for pulmonary embolism given normal vital signs (no
hypoxia, no tachycardia) and no evidence of lower extremity DVT bilaterally. Patient appears very well and comfortable, is ambulating around room with no apparent respiratory distress. Symptoms seem more positional and intermittent in nature
suggesting possible orthostatic etiology versus dehydration. Symptoms also likely attributable to third trimester . Attending physician did have a lengthy discussion patient D-dimer and pursuing further imaging of chest, including CTA
versus VQ scan and radiation risk. Shared decision making utilized and we will hold on further imaging at this time. Plan was discussed with patient's TREASURY MANAGER group, Dr. Tan. At this point�feel patient stable for discharge home with primary care
follow-up along with TREASURY MANAGER. Did provide name for graphite pan drier tender if needed in future. Patient comfortable with plan ambulating without difficulty out of emergency department.
Chronic conditions affecting care:
N/A
Acute Exacerbation and/or Progression of Chronic Illness:
N/A
<Мария Yeh PA-C - Last Filed: 06/29/24 00:19>
*Radiology
Radiology exam reviewed: radiology read reviewed
*Pulse Oximetry
Patient hypoxic: no
*EKG
Interpreted by ED Provider?: Yes
EKG Intrepretation Date: 06/27/24
*Experience Designer Interpretation
Rate: normal
Interpretation: normal
Heart Rate: 76
Rhythm: sinus
*Critical Care Note
Total Time (30-74mins, 75-104mins- exclusive of procedures): Not Applicable
<Мария Yeh PA-C - Last Filed: 06/29/24 00:19>
Patient Management
Discussion with other providers: Physician Locums Urgent Care
Escalation/DeEscalation of care consider admission/obs:
Admit not indicated
ED Attending Note
<Мария Yeh PA-C - Last Filed: 06/29/24 00:19>
-
Portions of this chart may have been created with voice recognition software.� Occasional wrong word or��sound alike� substitutions may have occurred due to the inherent limitations of voice recognition software.
<Adalid Chacko MD - Last Filed: 06/29/24 02:55>
ED Attending Note
Patient seen and examined by attending physician: Yes
ED Attending Note:
I have seen and evaluated the patient with a [id number] encounter. I have spoken to the advance practicer provider and involved in the medical history, the physical exam, medical decision making.
Evaluation and management service: agree unless noted differently below.
Results interpretation: agree unless noted differently below.
Focused HPI: 23-year-old female G1, P0 32 weeks follows with [facility] [facility] presents to the emergency room for evaluation of lightheadedness. This patient's second visit for this�was referred by TREASURY MANAGER today with persistent
symptoms. Patient describes that last week she was in the shower and began to feel lightheaded�she says that she 'sees stars' and feels as if she might pass out. She says it improves when she lays down. She says that she has had 3 or 4 similar
episodes in the past week typically with certain positional changes or prolonged sitting. She says that sometimes during the episode she has some shortness of breath. She does not have any associated chest pain or palpitations. She says that she
feels fine in between episodes and currently here in the emergency room she has no symptoms. She did have some loose stools last week but no vomiting and has been eating and drinking well. She has not had any vaginal bleeding or leakage of fluids.
Physical exam: Awake alert not in distress. Vital signs noted all within normal limits. Abdomen soft and appropriate size for gestational age. No cardiac rubs gallops or murmurs and lungs sound clear. No significant edema in the legs.
Medical Decision Makin-year-old female who is 32 weeks presents for evaluation of episodic lightheadedness. Seen last week for similar and had reassuring workup. Vitals and exam are benign here. She says she was sent over to rule
out blood clots�she had labs sent off including a CBC which shows stable anemia, CMP which was unremarkable. Troponin and proBNP are negative. Her D-dimer was slightly elevated; she was sent for a DVT study given her and this was
negative. Her EKG shows sinus rhythm and she was observed on telemetry with concerning events. I had a long discussion with the patient�I have a very low clinical suspicion that her symptoms are related to an acute pulmonary embolism. Her
symptoms are intermittent and seem to be triggered and relieved with positional changes. She has no chest pain although she says that sometimes she feels mildly short of breath during these episodes she has no consistent dyspnea. Her vital signs
are normal including heart rate in the 80s and pulse ox of 100% on room air, respiratory rate of 18. I suspect that these are more likely related to and increasing abdominal size--perhaps some decreased venous return secondary to IVC
compression from gravid uterus. I spoke to the patient at length and we reviewed results of her workup. Thus far has been reassuring�I explained the limits of our evaluation for DVT/PE here. We spoke about positive D-dimer but negative DVT study
which goes against a diagnosis of PE especially in the setting of low pretest probability. I did explain however that this is not 100% and that in order to 100% rule out PE we would have to proceed with a VQ scan or a CT of the chest. We spoke
about risks of radiation/nuclear study to her --explained that these risks are likely very low but nonzero. After weighing risks and benefits of diagnostic testing--as well as foregoing diagnostic testing--in the setting of low clinical
suspicion for PE, using shared decision making opted to forego further testing for PE. We spoke about return precautions. ELVIA updated TREASURY MANAGER team. All questions answered.
Discharge Plan
Departure
Patient Disposition: Home (Routine Discharge)
Date of Disposition: 06/28/24
Time of Disposition: 22:35
Patient with high blood pressure during this ER visit?: No
Condition: Good
Covid-19: Not Applicable
Discharge Problem:
Episodic lightheadedness, Near syncope
Instructions: Near Fainting (DC)
Prescriptions:
No Action
methylprednisolone [Medrol ([place])] 4 mg tablets,dose pack
4 mg PO DAILY Qty: 21 0RF
ondansetron 4 mg tablet,disintegrating
4 mg PO Q8H PRN (Reason: nausea and vomiting) 5 Days Qty: 14 0RF
ondansetron 4 mg tablet,disintegrating
4 mg PO Q6H PRN (Reason: nausea and vomiting) Qty: 7 0RF
ondansetron 4 mg tablet,disintegrating
4 mg PO Q8H PRN (Reason: nausea and vomiting) 3 Days Qty: 10 0RF
Referrals:
Luiz Robles MD [Active] - As needed
Adalid Anderson DO [Family Provider] - Follow up in 2-3 days
Soniya Tan MD [Active] - Keep scheduled appt
Activity Restrictions/Additional Instructions:
Return to the emergency department with any chest pain, shortness of breath/difficulty breathing, persistent lightheadedness, episodes of fainting, vaginal bleeding or loss of fluids, severe abdominal cramping, worsening in current symptoms or any
other concerns
-As discussed�it is important that you stay very well-hydrated. Go slowly from sitting to standing.
-Follow-up with your primary care for further evaluation/management. If symptoms persist/worsen and you would like to follow-up with a graphite pan drier tender�information has been provided for you above.
-You should keep scheduled appointments with TREASURY MANAGER
Monitor your symptoms closely and return to the emergency department with any acute worsening/new symptoms or any other concerns
Interventions
Interventions:
*Risk Screen - Suicide Last Done: 06/28/24 18:29
*General Assessment Last Done: 06/28/24 17:12
*Neglect/Abuse Screening Last Done: 06/28/24 18:29
*ED- Fall Risk Assessment Last Done: 06/28/24 18:29
*ED COVID-19 Vaccine History Last Done: 06/28/24 18:29
*Nursing Disposition Last Done: 06/28/24 22:47
ED-Female Genitourinary Assessment Last Done: 06/28/24 18:29
Discharge Date and Time
Discharge Date/Time: 06/28/24 22:48
Print Language: ROMANIAN
[2024-06-28] MEDS: NSS 1000 IV (20:04)
[2024-06-28 20:06] VITALS: BP 117/70
[2024-06-28 20:10] VITALS: BP 112/78; BP 117/70; BP 118/88; PULSE 78; PULSE 86; PULSE 90
[2024-06-28 20:11] VITALS: BP 118/88
[2024-06-28 21:00] VITALS: BP 99/61
[2024-06-28 21:11] LABS: D-Dimer 1.27 ug/mlFEU (0.00-0.50)
[2024-06-28 22:00] VITALS: BP 110/67
== END 2024-06-28 22:48 | disposition home or self-care (01) ==
LOC: EMR 17:07
PROVIDERS: Physician Assistant; Student in an Organized Health Care Education/Training Program; EMERGENCY PHYSICIAN Emergency Medicine; FAMILY PHYSICIAN Internal Medicine
DX: R55 Syncope and collapse (principal); R06.02 Shortness of breath; O26.893 Other specified pregnancy related conditions, third trimester; E87.1 Hypo-osmolality and hyponatremia
CPT/HCPCS: 99285; 80053; 83880; 84484; 85025; 85379; 93005; 93970

== ENCOUNTER → 2024-07-09 15:25 | Outpatient (REF) | payer OTHER, SELFPAY | LOC: PNTC 15:25 | PROVIDERS: ATTENDING PHYSICIAN Student in an Organized Health Care Education/Training Program | DX: O99.619 Diseases of the digestive system complicating pregnancy, unspecified trimester (principal) | CPT/HCPCS: 76816 ==

== ENCOUNTER → 2024-08-06 16:44 | Outpatient (REF) | payer OTHER, SELFPAY | LOC: PNTC 16:44 | PROVIDERS: ATTENDING PHYSICIAN Student in an Organized Health Care Education/Training Program | DX: O28.3 Abnormal ultrasonic finding on antenatal screening of mother (principal) | CPT/HCPCS: 76816 ==

== ENCOUNTER 2024-08-23 07:43 | Inpatient (IN) | payer OTHER, SELFPAY ==
[2024-08-23 08:07] VITALS: BP 128/85; BMI 26.0
[2024-08-23] MEDS: LR 1000 IV ×3 (08:30→18:09)
[2024-08-23 08:34] LABS: % Basophils 0.1 % (0-2); % Eosinophils 0.5 % (0-6); % Immature Granulocytes 0.3 % (0-0.5); % Lymphocytes 20.1 % (20.5-51.1); % Monocytes 6.6 % (1.7-9.3); % Neutrophils 72.4 % (42.2-75.2); Absolute Eosinophils 0.1 10^3/uL (0-0.7); Absolute Monocytes 0.7 10^3/uL (0.1-0.6); Absolute Neutrophils 7.3 10^3/uL (1.4-6.5); Hematocrit 32.1 % (37.0-47.0); Hemoglobin 10.5 g/dL (12.0-16.0); Mean Corp Hgb Conc. 32.7 g/dL (33.0-37.0); Mean Corpuscular Hgb 27.6 pg (27.0-31.0); Mean Corpuscular Volume 84.3 fL (81.0-99.0); Mean Platelet Volume 11.5 fL (7.4-10.4); Nucleated Red Blood Cells % 0 %; Platelet Count 215 10^3/uL (130-400); Red Blood Cell Count 3.81 10^6/uL (4.20-5.40); Red Cell Dist. Width 13.2 % (11.5-14.5); White Blood Cell Count 10.1 10^3/uL (4.8-10.8)
[2024-08-23] MEDS: STADOL 1 MG IV ×2 (09:13→10:49)
[2024-08-23] MEDS: SUBLIMAZE 100 MCG EPIDURAL (12:10)
[2024-08-23] MEDS: FENTANYL/BUPIVACAINE 100 EPIDURAL ×2 (12:10→20:50)
[2024-08-23] MEDS: PITOCIN 30 UNITS/NSS 500 ML IV (23:23)
[2024-08-24] MEDS: MOTRIN 600 MG PO ×4 (02:43→21:16)
[2024-08-24] MEDS: TYLENOL 650 MG PO ×4 (02:43→21:16)
[2024-08-24] MEDS: TUMS CHEWABLE TABLET 400 MG PO (02:43)
[2024-08-24] MEDS: SENOKOT-S 1 TABLET PO (09:14)
[2024-08-24] MEDS: PRENATAL PLUS 1 TABLET PO (09:14)
[2024-08-25] MEDS: TYLENOL 650 MG PO ×3 (03:41→17:58)
[2024-08-25] MEDS: MOTRIN 600 MG PO ×3 (03:42→17:58)
[2024-08-25 03:46] LABS: Hematocrit 29.8 % (37.0-47.0); Hemoglobin 9.1 g/dL (12.0-16.0)
[2024-08-25] MEDS: FEOSOL 325 MG PO (08:58)
[2024-08-25] MEDS: PRENATAL PLUS 1 TABLET PO (08:58)
[2024-08-26] MEDS: MOTRIN 600 MG PO ×2 (01:09→07:43)
[2024-08-26] MEDS: TYLENOL 650 MG PO ×2 (01:09→07:43)
[2024-08-26] MEDS: SENOKOT-S 1 TABLET PO (07:43)
[2024-08-26] MEDS: PRENATAL PLUS 1 TABLET PO (07:43)
[2024-08-26] MEDS: FEOSOL 325 MG PO (07:43)
[2024-08-27 13:20] LABS: Syphilis/T. pallidum Ab Reflex Negative (Negative)
== END 2024-08-26 10:49 | disposition home or self-care (01) | DRG 807 ==
LOC: LDRP 07:43
PROVIDERS: Obstetrics & Gynecology; ADMITTING PHYSICIAN Obstetrics & Gynecology
PROC: 10907ZC Drainage of Amniotic Fluid, Therapeutic from Products of Conception, Via Natural or Artificial Opening (ICD-10-PCS; 2024-08-23)
PROC: 0HQ9XZZ Repair Perineum Skin, External Approach (ICD-10-PCS; 2024-08-24)
PROC: 10E0XZZ Delivery of Products of Conception, External Approach (ICD-10-PCS; 2024-08-24)
DX: O76 Abnormality in fetal heart rate and rhythm complicating labor and delivery (principal); Z37.0 Single live birth; O77.0 Labor and delivery complicated by meconium in amniotic fluid; Z3A.39 39 weeks gestation of pregnancy; N80.9 Endometriosis, unspecified; O69.81X0 Labor and delivery complicated by cord around neck, without compression, not applicable or unspecified; O70.0 First degree perineal laceration during delivery; O90.81 Anemia of the puerperium; D64.9 Anemia, unspecified
CPT/HCPCS: 88307; 36415; 85014; 85018; 85025; 86780; 86850; 86900; 86901

== ENCOUNTER 2024-11-04 14:20 | Emergency (ER) | payer OTHER, SELFPAY ==
[2024-11-04] VITALS (10 sets, daily range): BP systolic 104–127; BP diastolic 65–93; PULSE 54–67
[2024-11-04 14:57] LABS: Hematocrit 37.1 % (37.0-47.0); Hemoglobin 12.0 g/dL (12.0-16.0); Mean Corp Hgb Conc. 32.3 g/dL (33.0-37.0); Mean Corpuscular Volume 86.1 fL (81.0-99.0); Nucleated Red Blood Cells % 0 %; Platelet Count 262 10^3/uL (130-400); Red Cell Dist. Width 15.4 % (11.5-14.5)
[2024-11-04 15:07] LABS: Urine Character Clear (Clear)
[2024-11-04 15:17] LABS: HCG, Urine Qualitative Screen Negative
[2024-11-04 15:25] LABS: ALT (SGPT) 25 U/L (0-35); AST (SGOT) 22 U/L (14-36); Albumin 4.7 g/dl (3.5-5.0); Alkaline Phosphatase 89 U/L (38-126); Blood Urea Nitrogen 16 mg/dl (7-17); Calcium 9.6 mg/dl (8.4-10.2); Carbon Dioxide 23 mmol/L (22-30); Chloride 109 mmol/L (98-107); Glucose 101 mg/dl (70-99); Potassium 4.0 mmol/L (3.5-5.1); Sodium 141 mmol/L (135-145); Total Protein 7.6 g/dl (6.3-8.2); eGFR > 60.00
[2024-11-04 15:35] LABS: Troponin I < 0.012 ng/ml
[2024-11-04 16:00] LABS: Urine Red Blood Cell 0-2 /HPF (0-2); Urine Squamous Cell >30 /LPF (Few)
[2024-11-04] MEDS: NSS 1000 IV (18:17)
[2024-11-04 18:50] LABS: D-Dimer < 0.27 ug/mlFEU (0.00-0.50)
--- NOTE | 2024-11-04 19:30 | ED.GENMED ---
History of Present Illness
General
Chief Complaint: Chest Pain
Time Seen by Provider: 11/04/24 16:40
History of Present Illness
History of Present Illness:
see MDM
Past History
Past History
ED Past Medical History: None
ED Past Surgical History: None
Social History
Tobacco: Non-smoker
Alcohol: None
Personal:
Living: with family
Phy Exam
Physical Exam
Physical Exam:
GENERAL: Alert , in no apparent distress, well-appearing
EYE: pupils equal and reactive
NECK: Supple
ENT: o/p clr, mmm.
CARDIAC: Regular rate and rhythm ., No murmurs, no tachycardia
LUNGS: Clear breath sounds bilaterally, no acute respiratory distress, no wheezes/rales/rhonchi no chest wall tenderness
ABDOMEN: Soft, without focal tenderness, no r/g, no cvat, normal bowel sounds
NEUROLOGICAL: Alert and oriented, no focal neuro deficits
SKIN: Warm and dry, skin intact.
MUSCULOSKELETAL: No edema, well perfused. neg vasile's sign
PSYCH: Normal and appropriate interaction.
Scores
Heart Score for Chest Pain Patients
STEMI patient?: No
History: Slightly or Non-Suspicious
ECG: Normal
Age: </= 45 years
Risk Factors: No Risk Factors
Troponin: </= Normal Limit
Heart Score for Chest Pain Patients: 0
Heart Score Risk: 2.5% MACE over next 6 weeks
Course
Orders/Labs/Results
Orders:
Orders
11/04/24 14:21
EKG [Electrocardiogram (*1)] Urgent
Reason for Study: Chest Pain
EKG- Treatment ONCE
11/04/24 14:31
Cardiac Monitoring- Treatment ONCE
IV Insert/Care/Rem.- Treatment PRN
Test Result ONCE
O2 Therapy [RESP] Urgent
Titrate/Wean O2 to maintain O2 sat greater than (%): 90
Special Instructions: Maintain sats >/=90%
Pulse Ox/spot Check [RESP] Urgent
Quantity: 1
Special Instructions: ON ROOM AIR
11/04/24 14:42
Complete Blood Count/With Diff Urgent
Comprehensive Metabolic Panel Urgent
HCG, Urine Qualitative Screen Urgent
Date Specimen was Collected: 11/04/24
Time Specimen was Collected: 14:31
Troponin I Urgent
UA Reflex to Culture [Urinalysis Reflex To Culture] Urgent
Date Specimen was Collected: 11/04/24
Time Specimen was Collected: 14:31
Urine Microscopic Reflex Cult Urgent
11/04/24 18:04
Orthostatic VS- Treatment ONCE
0.9% Sodium Chloride 1000 ml [Nss] 1,000 ml IV BOLUS
11/04/24 18:16
D-Dimer Urgent
Abnormal Lab Results
11/04/24
14:42
MCHC 32.3 L g/dL
(33.0-37.0)
RDW 15.4 H %
(11.5-14.5)
Lymphocytes % 15.9 L %
(20.5-51.1)
Chloride 109 H mmol/L
(98-107)
Glucose 101 H mg/dl
(70-99)
Ur Occult Blood Reflex 1+ A
(Negative)
Urine Bacteria (Reflex) Few A
(Negative)
11/04/24 14:42
11/04/24 14:42
Vital Signs
Initial and Last Documented VS:
Initial Vital Signs
Temp Pulse Resp BP Pulse Ox
36.7 C 98 16 127/90 99
11/04/24 14:28 11/04/24 14:28 11/04/24 14:28 11/04/24 14:28 11/04/24 14:28
Last Documented Vital Signs
Temp Pulse Resp BP Pulse Ox
36.7 C 72 17 105/74 99
11/04/24 14:28 11/04/24 20:00 11/04/24 20:00 11/04/24 20:00 11/04/24 20:00
MDM/Problems Addressed
MDM/Problems Addressed:
Note:
CHIEF COMPLAINT(S)
The patient reports episodes of chest tightness, difficulty breathing, tunnel vision, weakness, and shakiness.
HISTORY OF PRESENT ILLNESS
The patient, a male, presents with episodes of chest tightness that lead to feelings of being unable to breathe, tunnel vision, and weakness. The frequency of these episodes is approximately every one to two weeks, with a general feeling of
unwellness daily. The episodes have been occurring throughout the patients , and this is his first child, who is now two months old. 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
syncope, although the patient has never fully lost consciousness. The patient describes these episodes as severe enough to warrant concern but has been dismissed as anxiety in previous emergency department visits. The patient reports palpations that
seem to exacerbate the situation, although there seems to be absent external stressors during the incidents. Additionally, the patient mentions a history of low hemoglobin levels following childbirth, ongoing low iron levels, backache, and residual
soreness at the epidural site. The patient breastfeeds and wakes up every two to three hours to attend to the child, though recent sleep has improved. The patient denies any heart issues within the immediate family, except for high blood pressure in
the father and a young onset of heart issues in the grandfather. The patient has previously discussed these issues with an party plan sales unit sales leader, who attributed them to .
CHRONIC MEDICAL CONDITIONS SIGNIFICANTLY AFFECTING CARE
- History of endometriosis
- Low hemoglobin and iron levels
SOCIAL DETERMINANTS AFFECTING HEALTH
The patients cousin was present during an episode while driving, indicating a supportive family environment. The cousin expressed concerns and urged the patient to seek medical attention.
REVIEW OF SYSTEMS
- Cardiovascular: Episodes of chest tightness and palpitations.
- Neurological: Episodes involving tunnel vision and near-syncope.
- Musculoskeletal: Recent back pain and residual epidural site soreness.
- General: Weakness and shakiness during episodes.
PHYSICAL EXAM
- Nursing notes reviewed and vital signs reviewed.
PLAN
- The patient will be referred to a fertilizer loader for further evaluation, including potential cardiac monitoring during episodes.
- Consideration of iron deficiency testing and possible treatment if iron levels contribute to symptoms.
- Reassurance that current labs and electrocardiogram do not indicate immediate life-threatening issues, but more focused evaluations are needed.
DIFFERENTIAL DIAGNOSIS
The Differential Diagnosis includes, in no particular order and is not limited to:
1. Cardiac arrhythmias
2. Iron deficiency anemia
3. Thyroid dysfunction
4. Anxiety disorder
5. hormonal changes
6. Dehydration
7. Orthostatic hypotension
8. Hyperventilation syndrome
9. Acid reflux with vagal nerve involvement
10. Precipitated episodes by physical exertion or -related metabolic changes
Patient is 23 having episodes of random quick chest discomfort followed by wave of near syncope without fully lost losing consciousness over the last year, during her and now . They do not occur very commonly, more like once or
twice a week. Today's episode was not associated with her being upset which it has been attributed to anxiety in the past. Patient says that she is not really sure why this is happening to her. She is getting good sleep at night with the baby.
She is feeling otherwise healthy and not having any depression.
She has never had a blood clot but her mom had prior blood clots in
So she was worked up for this chest discomfort with a negative troponin, EKG without ischemic changes or tachycardia, normal rhythm, no electrolyte abnormalities. The patient was given IV fluids in case she was dehydrated.
CARE-UPDATE
11/04/24 - 19:43
The patient is advised CALL PCP for referral to cardiology and hopefuly wear a financial services associate for two weeks to detect abnormal heart rhythms that might be causing symptoms. The patient should contact cardiology to schedule a new patient appointment
and obtain a referral from their family doctor for the financial services associate and an echocardiogram if needed. If any new symptoms arise, like fainting, persistent shortness of breath, leg swelling, or chest pain, the patient should seek immediate medical
attention. The likelihood of a life-threatening arrhythmia is considered low, as the patient has never fully lost consciousness. The patient is encouraged to use these evaluations as motivation to address any underlying conditions, factoring in
recent life changes like post- status.
*Pulse Oximetry
SaO2: 100
Oxygen Mode of Delivery: Room air
Patient hypoxic: no (99)
*Critical Care Note
Total Time (30-74mins, 75-104mins- exclusive of procedures): Not Applicable
ED Attending Note
-
Portions of this chart may have been created with voice recognition software.� Occasional wrong word or��sound alike� substitutions may have occurred due to the inherent limitations of voice recognition software.
Discharge Plan
Departure
Patient Disposition: Home (Routine Discharge)
Date of Disposition: 11/04/24
Time of Disposition: 19:44
Patient with high blood pressure during this ER visit?: No
Condition: Fair
Covid-19: Not Applicable
Discharge Problem:
Near syncope
Instructions: Near Fainting (DC), Chest Pain PCP Follow Up
Prescriptions:
No Action
Vitamin
1 tab PO DAILY
acetaminophen 325 mg Tablet
650 mg PO Q4HPRN PRN (Reason: mild pain) Qty: 0 0RF
ferrous sulfate [FeroSul] 325 mg (65 mg iron) Tablet
325 mg PO DAILY Qty: 30 0RF
ibuprofen 600 mg Tablet
600 mg PO Q6HPRN PRN (Reason: moderate pain/cramps) Qty: 0 0RF
Referrals:
Adalid Anderson DO [Family Provider, General]
Activity Restrictions/Additional Instructions:
Your blood work was all reassuring today. You should follow-up with the fertilizer loader. They can give you a monitor to wear for period of time to try to capture 1 of these episodes and make sure you not having an abnormal rhythm.
But for now everything looks reassuring. Make sure to remain hydrated. If 1 of these episodes happens while you are sitting or standing please try to lay down to avoid passing out. Return if you fully pass out at any point or if you have any
worsening concerning symptoms like worst pain, shortness of breath, weakness etc.
Interventions
Interventions:
*Risk Screen - Suicide Last Done: 11/04/24 14:28
*General Assessment Last Done: 11/04/24 14:28
*Neglect/Abuse Screening Last Done: 11/04/24 14:28
*ED- Fall Risk Assessment Last Done: 11/04/24 20:07
*Nursing Disposition Last Done: 11/04/24 20:06
ED- Cardiac Assessment Last Done: 11/04/24 18:46
Discharge Date and Time
Discharge Date/Time: 11/04/24 20:11
Print Language: SENEGALESE
== END 2024-11-04 20:11 | disposition home or self-care (01) ==
LOC: EMR 14:20
PROVIDERS: Emergency Medicine; Physician Assistant; EMERGENCY PHYSICIAN Emergency Medicine; FAMILY PHYSICIAN Internal Medicine
DX: R55 Syncope and collapse (principal); R07.89 Other chest pain; D64.9 Anemia, unspecified
CPT/HCPCS: 96360; 99284; 80053; 81003; 81015; 81025; 84484; 85025; 85379; 93005